=== PATIENT | female | born 1995 | race Caucasian/White ===

== ENCOUNTER 2022-11-29 09:04 | Outpatient (CLI) | payer OTHER ==
[~2022-11-29] VITALS: Ht 177.8 cm; Wt 81.6 kg
[2022-11-29 09:14] VITALS: BP 142/85
[2022-11-29] MEDS ORDERED: PRENTAB9 PO (09:19)
[2022-11-29] MEDS ORDERED: HOME MED LIST COMPLETE! XX SCH (09:35)
== END 2022-11-29 09:57 | disposition home or self-care (01) ==
LOC: M LDO 09:04
PROVIDERS: ATTEND Obstetrics & Gynecology
DX: O36.8130 Decreased fetal movements, third trimester, not applicable or unspecified (principal); Z3A.36 36 weeks gestation of pregnancy
CPT/HCPCS: 59025; 76815; G0463

== ENCOUNTER 2022-12-29 12:33 | Outpatient (CLI) | payer OTHER ==
[~2022-12-29] VITALS: Ht 177.8 cm; Wt 85.4 kg
[~2022-12-29 12:33] MED LIST: PRENTAB9 PO
[2022-12-29] MEDS ORDERED: [UNRECOGNIZED DRUG - OTHER] PO (12:49)
[2022-12-29] MEDS ORDERED: ACET325C5 PO (12:49)
[2022-12-29] MEDS ORDERED: HOME MED LIST COMPLETE! XX SCH (12:50)
[2022-12-29 12:56] VITALS: BP 131/84
[2022-12-29 13:53] VITALS: BP 125/75
[2022-12-29] MEDS ORDERED: metroNIDAZOLE 70GM VAGINAL GEL PV SCH (21:00)
== END 2022-12-29 14:05 | disposition home or self-care (01) ==
LOC: M LDO 12:33
PROVIDERS: ATTEND Registered Nurse
DX: O23.593 Infection of other part of genital tract in pregnancy, third trimester (principal); Z3A.40 40 weeks gestation of pregnancy; O48.0 Post-term pregnancy
CPT/HCPCS: 59025; G0463

== ENCOUNTER 2023-01-04 08:00 | Inpatient (IN) | payer OTHER ==
[2023-01-04] VITALS (42 sets, daily range): BP systolic 96–154; BP diastolic 51–108
[~2023-01-04] VITALS: Ht 177.8 cm; Wt 85.5 kg
[~2023-01-04 08:00] MED LIST changes: +ACET325C5 PO; +[UNRECOGNIZED DRUG - OTHER] PO
[2023-01-04] MEDS ORDERED: HOME MED LIST COMPLETE! XX SCH (08:25)
[2023-01-04] MEDS ORDERED: LACTATED RINGER'S 1000 ML IV STA (09:06)
[2023-01-04] MEDS ORDERED: CARBOPROST TROMETHAMINE 250 MCG/ML AMP IM PRN (09:10)
[2023-01-04] MEDS ORDERED: OXYTOCIN DRIP 30 UNITS in IV 1 EA IV PRN ×4 (09:10)
[2023-01-04] MEDS ORDERED: METHYLERGONOVINE MALEATE 0.2MG/ML 1ML VIAL IM PRN (09:10)
[2023-01-04] MEDS ORDERED: LIDOCAINE 1% MDV 20ML VIAL INFIL PRN (09:10)
[2023-01-04] MEDS ORDERED: TRANEXAMIC ACID INJection 1,000 MG in NS 100 ML IV PRN (09:10)
[2023-01-04 09:11] LABS: HEMATOCRIT 39.9 % (36.0-47.0); HEMOGLOBIN 13.8 g/dl (12.0-15.5); MEAN CORPUSCULAR HGB CONC 34.6 g/dl (32.0-36.5); MEAN CORPUSCULAR VOLUME 92.6 fl (80.0-96.0); PLATELET COUNT, AUTOMATED 209 10^3/uL (150-450); RED BLOOD COUNT 4.31 10^6/uL (4.00-5.40); WHITE BLOOD COUNT 11.5 10^3/uL (4.0-10.0)
[2023-01-04] MEDS ORDERED: OXYTOCIN DRIP 30 UNITS in IV 1 EA IV SCH (09:40)
[2023-01-04] MEDS: LR 1,000 ML IV SCH ×2 (09:52→20:57)
[2023-01-04] MEDS ORDERED: EPIDURAL/PCA KEYS XX PRN (21:00)
[2023-01-04] MEDS ORDERED: diphenhydrAMINE 50MG/ML VIAL IV PRN (21:00)
[2023-01-04] MEDS ORDERED: FENTANYL/ROPIVACAINE/NACL BAG 100 ML EPIDURAL SCH (21:00)
[2023-01-04] MEDS ORDERED: NALOXONE INJ 0.4MG/1ML VIAL IV PRN (21:00)
[2023-01-04] MEDS ORDERED: ONDANSETRON 4MG 2ML VIAL IV PRN (21:00)
[2023-01-04] MEDS ORDERED: LR 500 ML IV PRN (21:00)
[2023-01-04] MEDS ORDERED: REFLB XX ONE (21:19)
[2023-01-04] MEDS: ePHEDrine SULFATE 25 MG/5 ML(5MG/ML) SYRINGE IVP PRN ×3 (23:03→23:12)
[2023-01-05] VITALS (9 sets, daily range): BP systolic 108–132; BP diastolic 57–86
[2023-01-05 00:31] LABS: CORD GAS ABE A -17.6; CORD GAS HCO3 A 15.7 MEQ/L; CORD GAS HCO3 V 18.1 MEQ/L; CORD GAS O2 SAT A 49.8 %; CORD GAS O2 SAT V 72.2 %; CORD GAS PCO2 A 70.5 mmHg; CORD GAS PCO2 V 47.8 mmHg; CORD GAS PH V 7.197 UNITS; CORD GAS PO2 A 34.7 mmHg; CORD GAS PO2 V 39.5 mmHg; CORD GAS SBC A 11.1 MEQ/L; CORD GAS SBC V 16.1 MEQ/L; CORD GAS TCO2 A 17.8 MEQ/L; CORD GAS TCO2 V 19.6 MEQ/L
[2023-01-05 00:34] LABS: CORD GAS PH A 6.965 UNITS
[2023-01-05] MEDS ORDERED: ANUSOL HC CREAM 30GM TOP PRN (01:00)
[2023-01-05] MEDS ORDERED: ACETAMINOPHEN TAB 650MG DOSE (2X325MG) PO PRN (01:00)
[2023-01-05] MEDS ORDERED: METHYLERGONOVINE MALEATE 0.2 MG TAB PO PRN (01:00)
[2023-01-05] MEDS ORDERED: METOCLOPRAMIDE INJ 10MG/2ML VIAL IV PRN (01:00)
[2023-01-05] MEDS ORDERED: DIBUCAINE 1% OINTMENT 30GM TOP PRN (01:00)
[2023-01-05] MEDS ORDERED: RHOGAM 300MCG (1500IU) INJ IM SCH (01:00)
[2023-01-05] MEDS ORDERED: IBUPROFEN 600MG TAB PO PRN (01:00)
[2023-01-05] MEDS ORDERED: DOCUSATE SODIUM 100MG CAPSULE PO PRN (01:00)
[2023-01-05] MEDS ORDERED: ACETAMINOPHEN 500 MG TAB PO PRN (01:00)
[2023-01-05] MEDS ORDERED: PRENATAL VITAMINS CHEWABLE TABLET PO SCH (09:00)
[2023-01-05] MEDS: IBUPROFEN 800 MG TAB PO PRN (15:54)
[2023-01-06] MEDS: IBUPROFEN 800 MG TAB PO PRN (02:28)
[2023-01-06 06:00] VITALS: BP 110/59
[2023-01-06 07:08] LABS: HEMATOCRIT 38.2 % (36.0-47.0); HEMOGLOBIN 13.3 g/dl (12.0-15.5); MEAN CORPUSCULAR HEMOGLOBIN 32.5 pg (27.0-33.0); MEAN CORPUSCULAR HGB CONC 34.8 g/dl (32.0-36.5); MEAN CORPUSCULAR VOLUME 93.4 fl (80.0-96.0); PLATELET COUNT, AUTOMATED 207 10^3/uL (150-450); RED BLOOD COUNT 4.09 10^6/uL (4.00-5.40); WHITE BLOOD COUNT 12.5 10^3/uL (4.0-10.0)
[2023-01-07] MEDS ORDERED: MEASLES,MUMPS,RUBELLA VACCINE INJ (MMR-II) SC.IMMUN ONE (09:00)
== END 2023-01-06 13:40 | disposition home or self-care (01) | DRG 807 ==
LOC: M LDI 08:00 → M OBS 01-05 04:04
PROVIDERS: ADMIT Advanced Practice Midwife; ATTEND Advanced Practice Midwife
PROC: 3E033VJ Introduction of Other Hormone into Peripheral Vein, Percutaneous Approach (ICD-10-PCS; 2023-01-04)
PROC: 10907ZC Drainage of Amniotic Fluid, Therapeutic from Products of Conception, Via Natural or Artificial Opening (ICD-10-PCS; 2023-01-04)
PROC: 10E0XZZ Delivery of Products of Conception, External Approach (ICD-10-PCS; principal; 2023-01-05)
PROC: 0HQ9XZZ Repair Perineum Skin, External Approach (ICD-10-PCS; 2023-01-05)
DX: O48.0 Post-term pregnancy (principal); Z37.0 Single live birth; Z3A.41 41 weeks gestation of pregnancy; O70.0 First degree perineal laceration during delivery